=== PATIENT | male | born 1950 | race African-American/Black ===

== ENCOUNTER 2018-06-02 05:30 | Inpatient (IN) | payer OTHER ==
[2018-06-02 06:24] LABS: ADD MAN DIFF? NO
[2018-06-02 06:25] LABS: ABNORMAL IP MESSAGE 1; BASOPHILS % 0.3 % (0.0-2.0); EOSINOPHILS % 0.4 % (0.0-7.0); HEMATOCRIT 44.6 % (42.0-52.0); HEMOGLOBIN 16.1 g/dl (14.0-18.0); LYMPHOCYTES # 1.2 10^3/ul (0.8-2.9); LYMPHOCYTES % 11.8 % (15.0-51.0); MEAN CORPUSCULAR HEMOGLOBIN 33.5 pg (29.0-33.0); MEAN CORPUSCULAR HGB CONC 36.1 g/dl (32.0-37.0); MEAN CORPUSCULAR VOLUME 92.9 fl (82.0-101.0); MEAN PLATELET VOLUME 10.8 fl (7.4-10.4); MONOCYTE # 1.5 10^3/ul (0.3-0.9); MONOCYTES % 14.7 % (0.0-11.0); NEUTROPHIL # 7.3 10^3/ul (1.6-7.5); PLATELET COUNT 99 10^3/UL (140-415); POSITIVE DIFF @See below; RED CELL DISTRIBUTION WIDTH 15.6 % (11.5-14.5)
[2018-06-02 06:25] LABS: WHITE BLOOD COUNT 10.2 10^3/ul (4.8-10.8)
[2018-06-02 06:43] LABS: INR 1.19; PROTIME 15.2 Sec (11.9-14.9); PT RATIO 1.2
[2018-06-02 06:44] LABS: PARTIAL THROMBOPLASTIN TIME 26.3 Sec (23.0-35.0)
[2018-06-02 06:53] LABS: ALANINE AMINOTRANSFERASE 44 IU/L (13-69); ALBUMIN 2.8 g/dl (3.3-4.9); ALKALINE PHOSPHATASE 141 IU/L (42-121); AMYLASE 105 U/L (11-123); ANION GAP 11 (5-13); ASPARTATE AMINO TRANSFERASE 53 IU/L (15-46); BILIRUBIN,INDIRECT 0.7 mg/dl (0-1.1); BILIRUBIN,TOTAL 0.7 mg/dl (0.2-1.3); BLOOD UREA NITROGEN 19 mg/dl (7-20); CALCIUM 8.6 mg/dl (8.4-10.2); CARBON DIOXIDE 31 mmol/L (21-31); CHLORIDE 94 mmol/L (97-110); CREATINE KINASE 21 IU/L (23-200); CREATININE 0.57 mg/dl (0.61-1.24); Estimated GFR > 60 mL/min (>60); LIPASE 157 U/L (23-300); POTASSIUM 3.4 mmol/L (3.5-5.1); SODIUM 136 mmol/L (135-144); TOTAL PROTEIN 6.8 g/dl (6.1-8.1)
[2018-06-02 07:03] LABS: CK INDEX 7.1; CK-MB 1.49 ng/ml (0.0-2.4); TROPONIN-I 0.024 ng/ml (0.000-0.120)
[2018-06-02 07:07] LABS: GLUCOSE 45 mg/dl (70-220)
[2018-06-02] MEDS: SOD CHLORIDE 0.9% 1,000 ML IV (07:09)
[2018-06-02] MEDS: DEXTROSE 50% 50 ML SYRINGE IV (07:09)
[2018-06-02 07:49] LABS: ETHANOL < 10.0 mg/dl (0-0); SALICYLATE < 1.0 mg/dl (5.0-30.0)
[2018-06-02 07:49] LABS: ACETAMINOPHEN < 10.0 ug/ml (10.0-30.0)
[2018-06-02 08:33] LABS: T3 UPTAKE 48.2 % (23.5-40.5); T4 (THYROXINE) 8.3 ug/dl (5.5-11.0)
[2018-06-02] MEDS ORDERED: ACETAMINOPHEN 325 MG TAB PO ×2 (09:00→12:30)
[2018-06-02] MEDS ORDERED: ONDANSETRON 4 MG INJ IV ×2 (09:00→12:30)
[2018-06-02 11:34] LABS: AMPHETAMINE/METHAMPHETAMINE Negative (NEGATIVE); BARBITURATES Negative (NEGATIVE); BENZODIAZEPINES Negative (NEGATIVE); CANNABINOIDS Negative (NEGATIVE); COCAINE Negative (NEGATIVE); OPIATES Positive (NEGATIVE)
[2018-06-02 11:43] LABS: ADD UMIC YES; UR ASCORBIC ACID NEGATIVE (NEGATIVE); UR BACTERIA FEW /HPF (NONE SEEN); UR BILIRUBIN (Dip) NEGATIVE (NEGATIVE); UR BLOOD (Dip) NEGATIVE (NEGATIVE); UR CLARITY CLEAR (CLEAR); UR COLOR YELLOW (YELLOW); UR GLUCOSE (Dip) 1+ mg/dL (NEGATIVE); UR KETONES (Dip) NEGATIVE (NEGATIVE); UR LEUKOCYTE ESTERASE (Dip) 1+ Leu/ul (NEGATIVE); UR NITRITE (Dip) NEGATIVE (NEGATIVE); UR RBC 1 /HPF (0-5); UR SPECIFIC GRAVITY (Dip) 1.008 (1.003-1.030); UR SQUAMOUS EPITHELIAL CELL FEW /HPF (FEW); UR TOTAL PROTEIN (Dip) NEGATIVE (NEGATIVE); UR UROBILINOGEN (Dip) 2+ mg/dL (NEGATIVE); UR WBC 2 /HPF (0-5)
[2018-06-02] MEDS ORDERED: NACL 0.9% 3 ML SYG IV (12:30)
[2018-06-02] MEDS: ACCU-CHEK XX (13:00)
[2018-06-02 14:38] LABS: HIV 1&2 ANTIBODY NEGATIVE (NEGATIVE)
[2018-06-02] MEDS: IOHEXOL 300MG/ML 150 ML BTL (15:05)
[2018-06-02] MEDS: SOD CHLORIDE 0.9% 100 ML (15:06)
[2018-06-02 17:26] LABS: TROPONIN-I 0.021 ng/ml (0.000-0.120)
[2018-06-02] MEDS: AMIODARONE 900 MG in DEXTROSE 5% 482 ML IV (17:40)
[2018-06-02] MEDS ORDERED: PENDING SANTYL ORDER FOR WOUND CARE XX (19:30)
[2018-06-02 22:18] LABS: RAPID PLASMA REAGIN NONREACTIVE (NR)
[2018-06-03] MEDS: AMIODARONE 900 MG in DEXTROSE 5% 482 ML IV (00:53)
[2018-06-03] MEDS: PANTOPRAZOLE (EC) 40 MG TAB PO (05:42)
[2018-06-03] MEDS ORDERED: VANCOMYCIN IV PER PHARMACY XX (08:00)
[2018-06-03] MEDS: ENOXAPARIN 40 MG/0.4 ML SYG SC (08:49)
[2018-06-03] MEDS: VANCOMYCIN 1 GM 250 ML IVPB (11:46)
[2018-06-03 13:51] LABS: ADD MAN DIFF? NO
[2018-06-03 13:55] LABS: ABNORMAL IP MESSAGE 1; BASOPHILS % 0.4 % (0.0-2.0); EOSINOPHILS # 0.1 10^3/ul (0.0-0.5); EOSINOPHILS % 1.1 % (0.0-7.0); HEMATOCRIT 38.2 % (42.0-52.0); HEMOGLOBIN 13.4 g/dl (14.0-18.0); LYMPHOCYTES # 1.5 10^3/ul (0.8-2.9); LYMPHOCYTES % 18.4 % (15.0-51.0); MEAN CORPUSCULAR HEMOGLOBIN 32.7 pg (29.0-33.0); MEAN CORPUSCULAR HGB CONC 35.1 g/dl (32.0-37.0); MEAN CORPUSCULAR VOLUME 93.2 fl (82.0-101.0); MEAN PLATELET VOLUME 11.2 fl (7.4-10.4); MONOCYTE # 1.2 10^3/ul (0.3-0.9); MONOCYTES % 14.6 % (0.0-11.0); NEUTROPHIL # 5.2 10^3/ul (1.6-7.5); NEUTROPHILS % 64.4 % (39.0-77.0); PLATELET COUNT 92 10^3/UL (140-415); POSITIVE DIFF @See below; RED CELL DISTRIBUTION WIDTH 15.9 % (11.5-14.5)
[2018-06-03 13:55] LABS: WHITE BLOOD COUNT 8.1 10^3/ul (4.8-10.8)
[2018-06-03 14:13] LABS: ALANINE AMINOTRANSFERASE 37 IU/L (13-69); ALBUMIN 2.4 g/dl (3.3-4.9); ALBUMIN/GLOBULIN RATIO 0.68; ALKALINE PHOSPHATASE 128 IU/L (42-121); ANION GAP 8 (5-13); ASPARTATE AMINO TRANSFERASE 45 IU/L (15-46); BILIRUBIN,INDIRECT 0.9 mg/dl (0-1.1); BILIRUBIN,TOTAL 0.9 mg/dl (0.2-1.3); BLOOD UREA NITROGEN 16 mg/dl (7-20); CALCIUM 7.8 mg/dl (8.4-10.2); CARBON DIOXIDE 26 mmol/L (21-31); CHLORIDE 96 mmol/L (97-110); CHOL/HDL RATIO 3.1 RATIO; CHOLESTEROL 75 mg/dl (100-200); CREATININE 0.52 mg/dl (0.61-1.24); Estimated GFR > 60 mL/min (>60); GLUCOSE 322 mg/dl (70-220); HDL CHOLESTEROL 24 mg/dl (30-78); LDL CHOLESTEROL,CALCULATED 31 mg/dl; MAGNESIUM 1.3 mg/dl (1.7-2.5); PHOSPHORUS 2.8 mg/dl (2.5-4.9); POTASSIUM 4.3 mmol/L (3.5-5.1); SODIUM 130 mmol/L (135-144); TOTAL PROTEIN 5.9 g/dl (6.1-8.1); TRIGLYCERIDES 101 mg/dl (0-149)
[2018-06-03 14:23] LABS: HEMOGLOBIN A1C 9.5 % (0-5.9); TROPONIN-I 0.022 ng/ml (0.000-0.120)
[2018-06-03] MEDS: VANCOMYCIN HCL 1.25 GM in SOD CHLORIDE 0.9% 250 ML IVPB (14:57)
[2018-06-03] MEDS: INSULIN ASPART [NOVOLOG] 3 ML PEN SC (15:54)
[2018-06-03] MEDS ORDERED: VANCOMYCIN HCL 1.25 GM in SOD CHLORIDE 0.9% 250 ML IVPB (17:00)
== END 2018-06-03 19:55 | DRG 641 ==
LOC: E/R 05:30 → 6WM 08:41
PROVIDERS: Internal Medicine
DX: E16.2 Hypoglycemia, unspecified (principal); N48.5 Ulcer of penis; Z59.0 Homelessness; R00.0 Tachycardia, unspecified
CPT/HCPCS: 36415; 70450; 71045; 71260; 80053; 80061; 80307; 81001; 82150; 82550; 82553; 82962; 83036; 83605; 83690; 83735; 84100; 84436; 84443; 84479; 84484; 85025; 85610; 85730; 86592; 86703; 87040; 87400; 90686; 93005; 93306; 96374; 99285-25